=== PATIENT | female | born 1935 | race Caucasian/White ===

== ENCOUNTER 2016-08-07 17:07 | Emergency (ER) | payer OTHER ==
[2016-08-07 17:14] VITALS: RESP 16
--- NOTE | 2016-08-07 17:40 | EDPHY ---
H & P Stated Complaint: Fall onto curb w/ chest Time Seen by Provider: 08/07/16 17:40 HPI/ROS: CHIEF COMPLAINT: Chest wall pain after mechanical fall HISTORY OF PRESENT ILLNESS: The patient presents to the ED with complaints of chest wall pain after mechanical fall. The patient was taking out her trash when she tripped. She fell forward landing on a concrete curb. She struck her sternum. She complains of some pain over the lateral aspects of her sternum. The patient denies significant dyspnea. She did not strike her head or lose consciousness. She has no associated complaints of headache, neck pain, abdominal pain, numbness weakness or additional complaints. The patient is not anticoagulated. REVIEW OF SYSTEMS: A comprehensive 10 point review of systems is otherwise negative aside from elements mentioned in the history of present illness. Source: Patient Exam Limitations: No limitations - Personal History Current Tetanus/Diphtheria Vaccine: Unsure Current Tetanus Diphtheria and Acellular Pertussis (TDAP): Unsure - Medical/Surgical History Hx Asthma: No Hx Chronic Respiratory Disease: No Hx Diabetes: No Hx Cardiac Disease: No Hx Renal Disease: No Hx Cirrhosis: No Hx Alcoholism: No Hx HIV/AIDS: No Hx Splenectomy or Spleen Trauma: No Other PMH: thyroid. celiac - Social History Smoking Status: Never smoked - Physical Exam Exam: General Appearance: Alert, no distress Head: Atraumatic Eyes: Pupils equal, round, reactive ENT, Mouth: No hemotympanum, no oral trauma Neck: Nontender, trachea midline Respiratory: Mild tenderness to palpation over the cartilaginous aspect of the sternum bilaterally, small abrasion to chest wall, lungs clear to auscultation bilaterally Cardiovascular: Regular rate and rhythm Abdomen: Abdomen is soft and nontender, pelvis stable Skin: No lacerations, No abrasion Back: No midline T/L/S pain Extremities: Nontender, full range of motion Neurological: GCS 15 Constitutional: Initial Vital Signs Temperature (C) 36.8 C 08/07/16 17:09 Heart Rate 70 08/07/16 17:09 Respiratory Rate 16 08/07/16 17:09 Blood Pressure 160/92 H 08/07/16 17:09 O2 Sat (%) 94 08/07/16 17:09 O2 Delivery Mode Room Air Allergies/Adverse Reactions: No Known Allergies Allergy (Unverified 09/02/14 10:26) Home Medications: Medication Instructions Recorded Celiac Med 09/02/14 Hydrocodone/APAP 5/325 [[place] 0.5 - 1 tab PO Q4-6PRN PRN #11 tab 09/02/14 5/325] Thyroid Med 09/02/14 Medical Decision Making - Diagnostics Imaging Results: Imaging Impressions Chest X-Ray 08/07/16 17:51 Impression: Acute mildly depressed sternal fracture. ED Course/Re-evaluation: The patient presents to the ED after mechanical fall. She has sternal tenderness and has a very mild sternal fracture. The patient has no evidence of JVD or evidence of a more significant cardiac injury. The patient was instructed to take Tylenol and ibuprofen as needed for pain. She will be instructed to return to the emergency department for chest pain or difficulty breathing. The patient was placed on a monitor while in the emergency department. She has no vital sign abnormalities. The patient is comfortable being discharged home. She is advised to ice the area of discomfort. She is given customary aftercare instructions and return precautions. Differential Diagnosis: Differential diagnosis considered includes rib fracture, pneumothorax, hemothorax, sternal fracture Departure - Departure Disposition: Home, Routine, Self-Care Clinical Impression: Sternal fracture Condition: Good Instructions: Rib Fracture (ED) Additional Instructions: 1. Take Ibuprofen or Motrin 600 mg by mouth three times a day. 2. Please return to the ED for any increased pain, difficulty breathing or other concerns. 3. You do have a mild fracture fracture of your sternum which should heal without complication. Referrals: Gustavo Gutierrez MD [Primary Care Provider] - As per Instructions
[2016-08-07 19:17] VITALS: BP 122/76; PULSE 55; TEMP 97.7; O2SAT 95
[2016-08-07] MEDS ORDERED: ACETAMINOPHEN 500 MG TAB PO ONE (19:19)
== END 2016-08-07 19:17 | disposition home or self-care (01) ==
DX: S22.20XA Unspecified fracture of sternum, initial encounter for closed fracture (principal); W01.198A Fall on same level from slipping, tripping and stumbling with subsequent striking against other object, initial encounter